=== PATIENT | female | born 2000 | race Caucasian/White ===

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

== ENCOUNTER 2020-07-01 11:54 | Emergency (ER) | payer BC ==
[~2020-07-01] VITALS: Ht 160 cm; Wt 53.2 kg
[2020-07-01 12:00] VITALS: TEMP 98
[2020-07-01 12:28] LABS: BASO % 0.3 % (0.0-2.0); EOS % 0.2 % (0-4.0); GRAN # 11.8 (1.4-6.5); HEMOGLOBIN 11.2 g/dl (12.0-15.0); LYMPH # 1.8 (1.2-3.4); LYMPH % 12.7 % (20.0-51.0); MEAN CELL VOLUME 78 fl (80.0-95.0); MEAN CORPUSCULAR HEMOGLOBIN 24 pg (26.0-32.0); MEAN CORPUSCULAR HGB CONC 31 g/dl (33.0-37.0); MEAN PLATELET VOLUME 9.1 fl (7.4-10.4); MONO # 0.7 (0.1-0.6); MONO % 4.5 % (1.7-9.3); PLATELET COUNT 381 K/mm3 (130-400); RED BLOOD COUNT 4.67 M/mm3 (4.10-5.30); REDCELL DISTRIBUTION WIDTH-CV 14.1 % (11.5-14.5)
[2020-07-01 12:30] LABS: HEMATOCRIT 36.3 % (35.0-45.0)
[2020-07-01 12:36] LABS: ALANINE AMINOTRANSFERASE 15 U/L (4-34); ALBUMIN 4.6 gm/dL (3.5-5.0); ALKALINE PHOSPHATASE 67 U/L (50-136); ANION GAP 11 mmol/L (7-16); AST,SGOT 24 U/L (15-37); BILIRUBIN,TOTAL < 0.1 mg/dL (0.0-1.0); BLOOD UREA NITROGEN 6 mg/dL (7-17); CALCIUM 8.9 mg/dL (8.4-10.2); CARBON DIOXIDE 23 mmol/L (22-30); CHLORIDE 105 mmol/L (98-107); GLUCOSE 94 mg/dL (74-106); POTASSIUM 4.2 mmol/L (3.4-5.0); SODIUM 140 mmol/L (137-145); TOTAL PROTEIN 8.5 gm/dL (6.4-8.2)
[2020-07-01 12:48] LABS: TROPONIN-I < 0.012 ng/mL (0.000-0.035)
[2020-07-01] MEDS ORDERED: PRILOSEC 20MG20 MG PO (13:38)
[2020-07-01 13:51] VITALS: BP 124/76; PULSE 91
== END 2020-07-01 13:52 | disposition home or self-care (01) ==
LOC: COL.ER 11:54
PROVIDERS: Family Medicine
DX: K21.9 Gastro-esophageal reflux disease without esophagitis (principal); F17.290 Nicotine dependence, other tobacco product, uncomplicated